=== PATIENT | female | born 1995 ===

== ENCOUNTER 2020-01-17 04:31 | Emergency (ER) | payer OTHER ==
[~2020-01-17] VITALS: Ht 157.5 cm; Wt 50.8 kg
== END 2020-01-17 11:30 | disposition home or self-care (01) ==
LOC: ER 04:31
DX: O26.891 Other specified pregnancy related conditions, first trimester (principal); K29.60 Other gastritis without bleeding; O23.31 Infections of other parts of urinary tract in pregnancy, first trimester; Z3A.11 11 weeks gestation of pregnancy; Z03.818 Encounter for observation for suspected exposure to other biological agents ruled out

== ENCOUNTER 2020-07-23 14:45 | Inpatient (IN) | payer OTHER ==
[~2020-07-23] VITALS: Ht 157.5 cm; Wt 58.1 kg
[2020-07-31] MEDS ORDERED: PRENATAL CAPLE1 EAC1 (05:54)
== END 2020-08-02 14:28 | disposition home or self-care (01) | DRG 807 ==
LOC: OB/GYN 07-30 14:45 → LDR 07-31 05:13 → OB/GYN 07-31 05:13
PROVIDERS: ADMIT Obstetrics & Gynecology; ATTEND Obstetrics & Gynecology
PROC: 10E0XZZ Delivery of Products of Conception, External Approach (ICD-10-PCS; principal; 2020-07-31)
PROC: 4A1HXFZ Monitoring of Products of Conception, Cardiac Rhythm, External Approach (ICD-10-PCS; 2020-07-31)
DX: O70.0 First degree perineal laceration during delivery (principal); Z37.0 Single live birth; Z3A.39 39 weeks gestation of pregnancy; Z20.822 Contact with and (suspected) exposure to COVID-19